=== PATIENT | male | born 1975 | race Asian ===

== ENCOUNTER 2016-06-18 12:04 | Emergency (ER) | payer OTHER ==
[~2016-06-18] VITALS: Ht 175.3 cm; Wt 74.4 kg
[~2016-06-18 12:04] MED LIST: OMEP40CA5 PO
[2016-06-18 13:50] VITALS: BP 123/72
[2016-06-18] MEDS ORDERED: ACETAMINOPHEN 500 MG TABLET PO ONE (14:15)
[2016-06-18] MEDS ORDERED: LIDOCAINE 2% VISCOUS 15 ML SOLUTION. SWSW ONE (14:15)
[2016-06-18] MEDS ORDERED: PREDNISONE 20 MG TABLET PO ONE (14:15)
--- NOTE | 2016-06-18 14:44 | PHYS DOC ---
Past Medical History Past Medical History: No Pertinent History Past Surgical History: No Surgical History Alcohol Use: None Drug Use: None Adult General Chief Complaint Chief Complaint: SORE THROAT HPI HPI Patient is a 40 year old male who presents with sore throat that began 5 days ago. Patient's also complaining of sores on his tongue. He states he was seen at a different location and was given penicillin. Patient denies any fever but was complaining of body aches. Review of Systems Review of Systems Constitutional: The index Eyes: Denies change in visual acuity, redness, or eye pain [] HENT: sore throat and sores on his tongue Respiratory: Denies cough or shortness of breath [] Cardiovascular: No additional information not addressed in HPI [] GI: Denies abdominal pain, nausea, vomiting, bloody stools or diarrhea [] : Denies dysuria or hematuria [] Musculoskeletal: Denies back pain or joint pain [] Integument: Denies rash or skin lesions [] Neurologic: Denies headache, focal weakness or sensory changes [] Endocrine: Denies polyuria or polydipsia [] Current Medications Current Medications Current Medications Medications (Trade) Dose Ordered Sig/Hamida Start Time Stop Time Status Last Admin Dose Admin Acetaminophen (Tylenol) 1,000 mg 1X ONCE 06/18/16 14:15 06/18/16 14:16 DC 06/18/16 14:25 1,000 MG Lidocaine HCl (Viscous Lidocaine) 15 ml 1X ONCE 06/18/16 14:15 06/18/16 14:16 DC 06/18/16 14:24 15 ML Prednisone (Prednisone) 60 mg 1X ONCE 06/18/16 14:15 06/18/16 14:16 DC 06/18/16 14:25 60 MG Allergies Allergies Allergies Coded Allergies Type Severity Reaction Last Updated Verified No Known Drug Allergies 09/19/13 No Physical Exam Physical Exam Constitutional: Well developed, well nourished, no acute distress, non-toxic appearance. [] HENT: Normocephalic, atraumatic, bilateral external ears normal, oropharynx moist, no oral exudates, nose normal. [] posterior pharynx with +2 tonsils, midline uvula, +2 anterior cervical adenopathy. tongue with one stomatitis lesion. Eyes: PERRLA, EOMI, conjunctiva normal, no discharge. [] Neck: Normal range of motion, no tenderness, supple, no stridor. [] Cardiovascular:Heart rate regular rhythm, no murmur [] Lungs & Thorax: Bilateral breath sounds clear to auscultation [] Abdomen: Bowel sounds normal, soft, no tenderness, no masses, no pulsatile masses. [] Skin: Warm, dry, no erythema, no rash. [] Back: No tenderness, no CVA tenderness. [] Extremities: No tenderness, no cyanosis, no clubbing, ROM intact, no edema. [] Neurologic: Alert and oriented X 3, normal motor function, normal sensory function, no focal deficits noted. [] Psychologic: Affect normal, judgement normal, mood normal. [] Current Patient Data Vital Signs Vital Signs Date Time Temp Pulse Resp B/P Pulse Ox O2 Delivery O2 Flow Rate FiO2 06/18/16 13:50 101.8 100 16 99 Room Air 101.8 EKG EKG [] Radiology/Procedures Radiology/Procedures [] Course & Med Decision Making Course & Med Decision Making Pertinent Labs and Imaging studies reviewed. (See chart for details) Patient has stomatitis, and tonsillitis. He is currently on penicillin, he was changed to amoxicillin. Saltwater gargles recommended. Tylenol/Motrin for pain or fever. Follow-up with primary care doctor in one week.He was provided return precautions and discharged in stable condition. Dragon Disclaimer Dragon Disclaimer This electronic medical record was generated, in whole or in part, using a voice recognition dictation system. Departure Departure Impression: Primary Impression: Acute tonsillitis Additional Impressions: Fever Stomatitis Disposition: 01 HOME, SELF-CARE Condition: STABLE Referrals: NO PCP (PCP) Please follow up with your doctor in one week Patient Instructions: Fever, Stomatitis, Tonsillitis Additional Instructions: You were seen for tonsillitis, fever and stomatitis/sores on the tongue. Stop taking penicillin and start taking amoxicillin. Take prednisone for 4 more days. Use saltwater gargles. Take Tylenol every 4 hours and Motrin every 6 hours. Follow-up with your own doctor in one week. Scripts Prednisone 50 Mg Tablet1 Tab PO DAILY #4 TAB Prov:MUTUNGA,LUIS ENTRY LEVEL FINANCE 06/18/16 Lidocaine Hcl (Lidocaine Hcl Viscous)20 Mg/1 Ml Solution5 Ml PO TID #100 ML Prov:MUTUNGA,LUIS ENTRY LEVEL FINANCE 06/18/16 Amoxicillin 875 Mg Tablet1 Tab PO BID #20 TAB Prov:LUIS HOLCOMB APRN 06/18/16 Problem Qualifiers Primary Impression: Acute tonsillitis Pharyngitis/tonsillitis etiology: unspecified etiology Qualified Code: J03.90 - Acute tonsillitis, unspecified Additional Impressions: Fever Fever type: unspecified Qualified Code: R50.9 - Fever, unspecified LUIS HOLCOMB APRN Jun 18, 2016 14:44
[2016-06-18] MEDS ORDERED: LIDO20SO PO (15:02)
[2016-06-18] MEDS ORDERED: PRED50TA PO (15:02)
[2016-06-18] MEDS ORDERED: AMOX875T PO (15:02)
== END 2016-06-18 15:07 | disposition home or self-care (01) ==
LOC: ER 12:04
DX: J03.90 Acute tonsillitis, unspecified (principal); R50.9 Fever, unspecified; K12.1 Other forms of stomatitis
CPT/HCPCS: 99283; J7512

== ENCOUNTER 2018-07-20 17:28 | Emergency (ER) | payer OTHER ==
[~2018-07-20] VITALS: Ht 175.3 cm; Wt 76.2 kg
[~2018-07-20 17:28] MED LIST changes: +AMOX875T PO; +LIDO20SO PO; +PRED50TA PO
[2018-07-20 18:19] LABS: BASO % 1 % (0-3); EOS # 0.3 x10^3/uL (0.0-0.7); EOS % 4 % (0-3); HEMOGLOBIN 14.7 g/dL (13.0-17.5); LYMPH % 29 % (24-48); MEAN CORPUSCULAR HEMOGLOBIN 30 pg (25-35); MEAN CORPUSCULAR HGB CONC 33 g/dL (31-37); MEAN CORPUSCULAR VOLUME 92 fL (79-100); MONO # 0.5 x10^3/uL (0.0-1.1); MONO % 8 % (0-9); NEUT % 58 % (31-73); PLATELET COUNT 193 x10^3/uL (140-400); RED CELL DISTRIBUTION WIDTH 13.7 % (11.5-14.5); WHITE BLOOD COUNT 6.8 x10^3/uL (4.0-11.0)
[2018-07-20 18:27] LABS: CALCIUM 8.5 mg/dL (8.5-10.1); CREATININE 1.2 mg/dL (0.7-1.3); GFR 65.8; POTASSIUM 3.6 mmol/L (3.5-5.1)
[2018-07-20 18:30] LABS: ALBUMIN 3.7 g/dL (3.4-5.0); ALBUMIN/GLOBULIN RATIO 0.9 (1.0-1.7); MAGNESIUM 2.1 mg/dL (1.8-2.4); TOTAL BILIRUBIN 0.3 mg/dL (0.2-1.0); TOTAL PROTEIN 7.9 g/dL (6.4-8.2)
[2018-07-20] MEDS ORDERED: IV NORMAL SALINE 1000ML BAG 1,000 ML IV ONE (18:30)
[2018-07-20] MEDS ORDERED: ONDANSETRON PF 4 MG/2 ML VIAL. IV ONE (18:30)
[2018-07-20 18:45] VITALS: BP 124/89
[2018-07-20] MEDS ORDERED: CONTRAST GIVEN. MC PRN (18:45)
--- NOTE | 2018-07-20 18:49 | PHYS DOC ---
Past Medical History Past Medical History: GERD (LUIS HOLCOMB APRN) Past Surgical History: No Surgical History Additional Past Surgical Histo: PERFORATED GASTRIC ULCER 2009 (LUIS HOLCOMB APRN) Alcohol Use: None Drug Use: None (LUIS HOLCOMB APRN) Adult General Chief Complaint Chief Complaint: CONSTIPATION HPI HPI Patient is a 43 year old male with a history of acid reflex, abdominal surgery to remove a tumor who presents to the ED today complaining of rectal pressure and possible constipation. Patient states today he attempted to have a bowel movement about 10 AM, he states he felt his bowels were heard but nothing came down. He states he feels he has rectal pressure. Denies any nausea vomiting. Denies any diarrhea. Denies any abdominal pain. Patient denies taking any medications that could cause some constipation. Interpretation provided by family for Ilia (LUIS HOLCOMB APRN) Review of Systems Review of Systems Constitutional: Denies fever or chills [] Eyes: Denies change in visual acuity, redness, or eye pain [] HENT: Denies nasal congestion or sore throat [] Respiratory: Denies cough or shortness of breath [] Cardiovascular: No additional information not addressed in HPI [] GI: Reports rectal pressure, constipation. Denies abdominal pain, nausea, vomiting, bloody stools or diarrhea [] : Denies dysuria or hematuria [] Musculoskeletal: Denies back pain or joint pain [] Integument: Denies rash or skin lesions [] Neurologic: Denies headache, focal weakness or sensory changes [] All other systems were reviewed and found to be within normal limits, except as documented in this note. (LUIS HOLCOMB APRN) Current Medications Current Medications Current Medications Medications (Trade) Dose Ordered Sig/Hamida Start Time Stop Time Status Last Admin Dose Admin Info (CONTRAST GIVEN -- Rx MONITORING) 1 each PRN DAILY PRN 07/20/18 18:45 07/20/18 19:57 DC Iohexol (Omnipaque 300 Mg/ml) 75 ml 1X ONCE 07/20/18 19:00 07/20/18 19:01 DC 07/20/18 18:53 75 ML Magnesium Citrate (Citroma) 296 ml 1X ONCE 07/20/18 20:00 07/20/18 20:00 DC Ondansetron HCl (Zofran) 4 mg 1X ONCE 07/20/18 18:30 3/2/19 18:31 DC 07/20/18 18:18 4 MG Sodium Chloride 1,000 ml @ 1,000 mls/hr 1X ONCE 07/20/18 18:30 07/20/18 19:29 DC 07/20/18 18:16 1,000 MLS/HR (RASTA DOBSON DO) Allergies Allergies Allergies Coded Allergies Type Severity Reaction Last Updated Verified No Known Drug Allergies 09/19/13 No (RASTA DOBSON DO) Physical Exam Physical Exam Constitutional: Well developed, well nourished, no acute distress, non-toxic appearance. [] HENT: Normocephalic, atraumatic, bilateral external ears normal, oropharynx moist, no oral exudates, nose normal. [] Eyes: PERRLA, EOMI, conjunctiva normal, no discharge. [] Neck: Normal range of motion, no tenderness, supple, no stridor. [] Cardiovascular:Heart rate regular rhythm, no murmur [] Lungs & Thorax: Bilateral breath sounds clear to auscultation [] Abdomen: Midline abdomen without old healed surgical incision. Bowel sounds normal, soft, no tenderness, no masses, no pulsatile masses. [] Rectal exam External rectum is normal, palpable small hemorrhoids noted internally, no masses palpable. Skin: Warm, dry, no erythema, no rash. [] Back: No tenderness, no CVA tenderness. [] Extremities: No tenderness, no cyanosis, no clubbing, ROM intact, no edema. [] Neurologic: Alert and oriented X 3, normal motor function, normal sensory function, no focal deficits noted. [] Psychologic: Affect normal, judgement normal, mood normal. [] (LUIS HOLCOMB APRN) Current Patient Data Vital Signs Vital Signs Date Time Temp Pulse Resp B/P (MAP) Pulse Ox O2 Delivery O2 Flow Rate FiO2 07/20/18 18:45 124/89 (101) 07/20/18 18:15 54 20 99 Room Air 07/20/18 17:45 97.6 97.6 (RASTA DOBSON DO) Lab Values Laboratory Tests Test 07/20/18 18:10 07/20/18 18:40 White Blood Count 6.8 x10^3/uL (4.0-11.0) Red Blood Count 4.90 x10^6/uL (4.30-5.70) Hemoglobin 14.7 g/dL (13.0-17.5) Hematocrit 45.0 % (39.0-53.0) Mean Corpuscular Volume 92 fL (79-100) Mean Corpuscular Hemoglobin 30 pg (25-35) Mean Corpuscular Hemoglobin Concent 33 g/dL (31-37) Red Cell Distribution Width 13.7 % (11.5-14.5) Platelet Count 193 x10^3/uL (140-400) Neutrophils (%) (Auto) 58 % (31-73) Lymphocytes (%) (Auto) 29 % (24-48) Monocytes (%) (Auto) 8 % (0-9) Eosinophils (%) (Auto) 4 % (0-3) H Basophils (%) (Auto) 1 % (0-3) Neutrophils # (Auto) 4.0 x10^3uL (1.8-7.7) Lymphocytes # (Auto) 2.0 x10^3/uL (1.0-4.8) Monocytes # (Auto) 0.5 x10^3/uL (0.0-1.1) Eosinophils # (Auto) 0.3 x10^3/uL (0.0-0.7) Basophils # (Auto) 0.0 x10^3/uL (0.0-0.2) Sodium Level 142 mmol/L (136-145) Potassium Level 3.6 mmol/L (3.5-5.1) Chloride Level 104 mmol/L (98-107) Carbon Dioxide Level 31 mmol/L (21-32) Anion Gap 7 (6-14) Blood Urea Nitrogen 14 mg/dL (8-26) Creatinine 1.2 mg/dL (0.7-1.3) Estimated GFR (Cockcroft-Gault) 65.8 BUN/Creatinine Ratio 12 (6-20) Glucose Level 94 mg/dL (70-99) Calcium Level 8.5 mg/dL (8.5-10.1) Magnesium Level 2.1 mg/dL (1.8-2.4) Total Bilirubin 0.3 mg/dL (0.2-1.0) Aspartate Amino Transferase (AST) 19 U/L (15-37) Alanine Aminotransferase (ALT) 32 U/L (16-63) Alkaline Phosphatase 94 U/L (46-116) Total Protein 7.9 g/dL (6.4-8.2) Albumin 3.7 g/dL (3.4-5.0) Albumin/Globulin Ratio 0.9 (1.0-1.7) L Lipase 144 U/L (73-393) Ethyl Alcohol Level < 10 mg/dL (0-10) Urine Collection Type Unknown Urine Color Yellow Urine Clarity Clear Urine pH 7.5 Urine Specific [place] 1.015 Urine Protein Negative mg/dL (NEG-TRACE) Urine Glucose (UA) Negative mg/dL (NEG) Urine Ketones (Stick) Negative mg/dL (NEG) Urine Blood Negative (NEG) Urine Nitrite Negative (NEG) Urine Bilirubin Negative (NEG) Urine Urobilinogen Dipstick 1.0 mg/dL (0.2 mg/dL) Urine Leukocyte Esterase Negative (NEG) Urine RBC 0 /HPF (0-2) Urine WBC 0 /HPF (0-4) Urine Amorphous Sediment Present /HPF Urine Bacteria Few /HPF (0-FEW) Urine Mucus Slight /LPF Urine Opiates Screen Neg (NEG) Urine Methadone Screen Neg (NEG) Urine Barbiturates Neg (NEG) Urine Phencyclidine Screen Neg (NEG) Urine Amphetamine/Methamphetamine Neg (NEG) Urine Benzodiazepines Screen Neg (NEG) Urine Cocaine Screen Neg (NEG) Urine Cannabinoids Screen Neg (NEG) Urine Ethyl Alcohol Neg (NEG) Laboratory Tests 07/20/18 18:10 Laboratory Tests 07/20/18 18:10 (RASTA DOBSON DO) EKG EKG [] (LUIS HOLCOMB APRN) Radiology/Procedures Radiology/Procedures []PROCEDURE: CT ABD PELV W/ IV CONTRST ONLY CT abdomen and pelvis with contrast Clinical Indication: Abdominal pain, constipation COMPARISON: None TECHNIQUE: Multiple contiguous axial images were obtained throughout the abdomen and pelvis with the use of IV contrast. Axial images were reformatted into coronal and sagittal planes. 75 mL Omni 300 was administered. Abdomen findings: Bilateral dependent atelectasis. The liver, gallbladder, spleen, pancreas, and adrenal glands are unremarkable. The kidneys are unremarkable. There is no significant mesenteric or retroperitoneal adenopathy identified. There is no evidence of free intraperitoneal fluid or pneumoperitoneum. Surgical clips in the upper abdomen, mostly in the region of the GE junction. The rectosigmoid colon is relatively decompressed limiting evaluation for wall thickening. The remaining visualized portions of the bowel are grossly unremarkable. Mild colonic stool. Normal appendix. Pelvis findings: The bladder and distal ureters are unremarkable. There is no significant pelvic ascites. Prostatic calcifications. No significant iliac or inguinal adenopathy is identified. No acute osseous abnormality. IMPRESSION: No acute intra-abdominal or intrapelvic process identified. Electronically signed by: Lior Mercado MD (07/20/2018 7:11 PM) [facility] DICTATED and SIGNED BY: LIOR MERCADO MD DATE: 07/20/181903 (LUIS HOLCOMB APRN) Course & Med Decision Making Course & Med Decision Making Pertinent Labs and Imaging studies reviewed. (See chart for details) This is a 43-year-old male patient presenting to the ED today complaining of rectal pressure and constipation. Rectal exam no palpable masses noted. CBC, CMP , lipase, no acute findings. CT of the abdomen and pelvic was negative for any acute findings, noted for mild colonic stool. Given magnesium citrate. Discharged with MiraLAX. We also encouraged patient to increase dietary fiber intake, increase water intake. Follow-up with PCP in 1-2 weeks. (LUIS HOLCOMB APRN) Dragon Disclaimer Dragon Disclaimer This electronic medical record was generated, in whole or in part, using a voice recognition dictation system. (LUIS HOLCOMB APRN) Departure Departure Impression: Primary Impression: Constipation Disposition: 01 HOME, SELF-CARE Condition: STABLE Referrals: NO PCP (PCP) WILIAN CASH MD follow up in 1 week Patient Instructions: Constipation, Adult Additional Instructions: You were evaluated in the emergency room and noted to be constipated. Please increase your dietary fiber intake, increase your water intake. 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 I was available for consultation as needed during the patient's visit in the emergency department. I agree with the clinical impression, plan, and disposition. (RASTA DOBSON DO) Problem Qualifiers Primary Impression: Constipation Constipation type: unspecified constipation type Qualified Codes: K59.00 - Constipation, unspecified LUIS HOLCOMB APRN Jul 20, 2018 18:49 RASTA DOBSON DO Jul 21, 2018 04:21
[2018-07-20 18:50] LABS: BILIRUBIN,URINE NEGATIVE (NEG); CLARITY,URINE CLEAR; COLOR,URINE YELLOW; NITRITE,URINE NEGATIVE (NEG); PH,URINE 7.5; PROTEIN,URINE NEGATIVE (NEG-TRACE)
[2018-07-20 18:56] LABS: AMORPHOUS SEDIMENT,UR PRESENT /HPF; BACTERIA,URINE FEW /HPF (0-FEW); RBC,URINE 0 /HPF (0-2); WBC,URINE 0 /HPF (0-4)
[2018-07-20 18:57] LABS: BARBITURATES NEG (NEG); BENZODIAZEPINES NEG (NEG); CANNABINOIDS NEG (NEG); COCAINE NEG (NEG); METHADONE NEG (NEG); OPIATES NEG (NEG); PHENCYCLIDINE NEG (NEG)
[2018-07-20 18:58] LABS: AMPHETAMINE/METHAMPHETAMINE NEG (NEG)
[2018-07-20] MEDS ORDERED: IOHEXOL 300 MG/ML 100ML VIAL. IV ONE (19:00)
--- NOTE | 2018-07-20 19:14 | RAD ---
CT abdomen and pelvis with contrast Clinical Indication: Abdominal pain, constipation COMPARISON: None TECHNIQUE: Multiple contiguous axial images were obtained throughout the abdomen and pelvis with the use of IV contrast. Axial images were reformatted into coronal and sagittal planes. 75 mL Omni 300 was administered. Abdomen findings: Bilateral dependent atelectasis. The liver, gallbladder, spleen, pancreas, and adrenal glands are unremarkable. The kidneys are unremarkable. There is no significant mesenteric or retroperitoneal adenopathy identified. There is no evidence of free intraperitoneal fluid or pneumoperitoneum. Surgical clips in the upper abdomen, mostly in the region of the GE junction. The rectosigmoid colon is relatively decompressed limiting evaluation for wall thickening. The remaining visualized portions of the bowel are grossly unremarkable. Mild colonic stool. Normal appendix. Pelvis findings: The bladder and distal ureters are unremarkable. There is no significant pelvic ascites. Prostatic calcifications. No significant iliac or inguinal adenopathy is identified. No acute osseous abnormality. IMPRESSION: No acute intra-abdominal or intrapelvic process identified. Electronically signed by: Lior Mercado MD (07/20/2018 7:11 PM) [facility]
[2018-07-20] MEDS ORDERED: POLY17PO29 PO (19:44)
[2018-07-20] MEDS ORDERED: MAGNESIUM CITRATE 296 ML SOLUTION. PO ONE (20:00)
== END 2018-07-20 19:50 | disposition home or self-care (01) ==
LOC: ER 17:28
DX: K59.00 Constipation, unspecified (principal); K21.9 Gastro-esophageal reflux disease without esophagitis; Z98.890 Other specified postprocedural states
CPT/HCPCS: 36415; 74177; 80053; 80307; 81001; 83690; 83735; 85025; 96361; 96374; 99284; G0480; J2405; J7030; Q9967